=== PATIENT | female | born 1985 | race Caucasian/White ===

== ENCOUNTER → 2016-12-08 | Outpatient (CLI) | payer OTHER ==
[~2016-12-08] MED LIST: ONDA4TAB10 PO; OXYC1TAB7 PO
== END | disposition home or self-care (01) ==
LOC: CFH 15:27
PROVIDERS: ATTEND Obstetrics & Gynecology
DX: N83.02 Follicular cyst of left ovary (principal); N83.01 Follicular cyst of right ovary
CPT/HCPCS: 76830

== ENCOUNTER 2017-04-12 17:00 | Emergency (ER) | payer OTHER ==
[~2017-04-12] VITALS: Ht 172.7 cm; Wt 91.0 kg
[2017-04-12] MEDS ORDERED: SODIUM CHLORIDE FLUSH 10ML SYR IVF ONE (17:30)
[2017-04-12] MEDS ORDERED: MORPHINE SULFATE 4 MG/ML, 1ML IVPush PRN ×2 (17:30→21:00)
[2017-04-12] MEDS ORDERED: SODIUM CHLORIDE 0.9% 1,000ML IVBOLUS ONE (17:30)
[2017-04-12] MEDS ORDERED: ONDANSETRON 2MG/ML, 2ML IVPush ONE ×2 (17:30→21:00)
[2017-04-12] MEDS ORDERED: ONDANSETRON 2MG/ML, 2ML ONE ×2 (17:49→20:36)
[2017-04-12] MEDS ORDERED: KETOROLAC 30 MG/1 ML ONE (17:49)
[2017-04-12 17:59] LABS: BLOOD UREA NITROGEN 11 mg/dL (7-18)
[2017-04-12] MEDS ORDERED: KETOROLAC 30 MG/1 ML IVPush ONE (18:00)
[2017-04-12] MEDS ORDERED: OMNIPAQUE 350 MG/ML, 100ML BOTTLE ONE (20:25)
[2017-04-12] MEDS ORDERED: MORPHINE SULFATE 4 MG/ML, 1ML ONE (20:36)
[2017-04-12 22:17] VITALS: BP 111/68
== END 2017-04-12 22:19 | disposition home or self-care (01) ==
LOC: ED 20:43
DX: N83.01 Follicular cyst of right ovary (principal); N83.02 Follicular cyst of left ovary; N98.1 Hyperstimulation of ovaries; Z87.891 Personal history of nicotine dependence
CPT/HCPCS: 36415; 74020; 74177; 80048; 81003; 82040; 84703; 85025; 96361; 96374; 96375; 96376; 99285; J1885; J2405; J7030; Q9967

== ENCOUNTER 2018-12-16 09:57 | Outpatient (CLI) | payer OTHER ==
[2018-12-16] MEDS ORDERED: PREN1TAB10 PO (10:55)
[2018-12-16] MEDS ORDERED: METF10007 PO (10:55)
== END 2018-12-16 11:16 | disposition home or self-care (01) ==
LOC: LDOP 09:57
PROVIDERS: ATTEND Obstetrics & Gynecology
DX: O26.892 Other specified pregnancy related conditions, second trimester (principal); R10.9 Unspecified abdominal pain; Z3A.21 21 weeks gestation of pregnancy
CPT/HCPCS: 59025; 99201; G0463

== ENCOUNTER 2019-02-10 11:35 | Outpatient (CLI) | payer OTHER ==
[~2019-02-10] VITALS: Ht 172.7 cm; Wt 112.7 kg
[~2019-02-10 11:35] MED LIST changes: +METF10007 PO; +PREN1TAB10 PO
[2019-02-10 11:39] VITALS: BP 145/89
[2019-02-10] MEDS ORDERED: ACETAMINOPHEN 325 MG TABLET ONE (12:18)
[2019-02-10] MEDS ORDERED: ACETAMINOPHEN 325 MG TABLET PO ONE (12:30)
[2019-02-10 13:24] LABS: MICROSCOPIC NOT IND
[2019-02-10 13:31] LABS: BASOPHILS # (AUTO) 0.07 x10^3/uL (0-0.1); BASOPHILS % (AUTO) 1 % (0-1); EOSINOPHILS # (AUTO) 0.25 x10^3/uL (0-0.4); EOSINOPHILS % (AUTO) 2 % (1-7); LYMPHOCYTES # (AUTO) 2.42 x10^3/uL (1-3.4); LYMPHOCYTES % (AUTO) 20 % (22-44); MD NO; MEAN CORPUSCULAR HEMOGLOBIN 29.2 pg (27.0-34.8); MEAN CORPUSCULAR HGB CONC 32.7 g/dL (32.4-35.8); MEAN CORPUSCULAR VOLUME 89.3 fL (80-100); MEAN PLATELET VOLUME 8.9 fL (7.4-10.4); MONOCYTES % (AUTO) 4 % (2-9); NEUTROPHILS # (AUTO) 8.66 x10^3/uL (1.8-6.8); NEUTROPHILS % (AUTO) 73 % (42-75); PLATELET COUNT 217 x10^3/uL (130-400); RED BLOOD COUNT 3.88 x10^6/uL (3.82-5.3); RED CELL DISTRIBUTION WIDTH 13.3 % (9.6-15.2)
[2019-02-10 13:37] LABS: CREATININE,URINE RANDOM 28.1 mg/dL
[2019-02-10 13:42] LABS: ALANINE AMINOTRANSFERASE 19 U/L (12-78); ALBUMIN 2.8 g/dL (3.4-5.0); ANION GAP 9 mmol/L (5-15); CALCIUM 9.4 mg/dL (8.5-10.1); CHLORIDE 107 mmol/L (98-107); CREATININE 0.79 mg/dL (0.55-1.02)
[2019-02-10 13:44] LABS: ALKALINE PHOSPHATASE 63 U/L (45-117); BILIRUBIN,TOTAL 0.3 mg/dL (0.2-1.0); TOTAL PROTEIN 6.5 g/dL (6.4-8.2)
== END 2019-02-10 15:10 | disposition home or self-care (01) ==
LOC: LDOP 11:35
PROVIDERS: ATTEND Obstetrics & Gynecology
DX: O46.93 Antepartum hemorrhage, unspecified, third trimester (principal); Z3A.29 29 weeks gestation of pregnancy
CPT/HCPCS: 59025; 80053; 81003; 81050; 82570; 84156; 84550; 85025; 99211; G0463

== ENCOUNTER 2019-03-20 11:12 | Outpatient (CLI) | payer OTHER ==
[~2019-03-20] VITALS: Ht 172.7 cm; Wt 112.0 kg
[2019-03-20 11:33] VITALS: BP 165/98
[2019-03-20 11:34] LABS: MICROSCOPIC NOT IND
[2019-03-20 11:42] LABS: BASOPHILS # (AUTO) 0.04 x10^3/uL (0-0.1); BASOPHILS % (AUTO) 0 % (0-1); EOSINOPHILS # (AUTO) 0.18 x10^3/uL (0-0.4); EOSINOPHILS % (AUTO) 2 % (1-7); LYMPHOCYTES # (AUTO) 2.16 x10^3/uL (1-3.4); LYMPHOCYTES % (AUTO) 22 % (22-44); MD NO; MEAN CORPUSCULAR HEMOGLOBIN 30.1 pg (27.0-34.8); MEAN CORPUSCULAR HGB CONC 33.4 g/dL (32.4-35.8); MEAN CORPUSCULAR VOLUME 89.9 fL (80-100); MEAN PLATELET VOLUME 9.3 fL (7.4-10.4); MONOCYTES # (AUTO) 0.47 x10^3/uL (0.2-0.8); MONOCYTES % (AUTO) 5 % (2-9); NEUTROPHILS # (AUTO) 6.92 x10^3/uL (1.8-6.8); NEUTROPHILS % (AUTO) 71 % (42-75); PLATELET COUNT 220 x10^3/uL (130-400); RED BLOOD COUNT 3.89 x10^6/uL (3.82-5.3); RED CELL DISTRIBUTION WIDTH 13.6 % (9.6-15.2)
[2019-03-20] MEDS ORDERED: LABETALOL 100 MG TABLET ONE (11:42)
[2019-03-20 11:46] LABS: CREATININE,URINE RANDOM 52.4 mg/dL
[2019-03-20 11:56] LABS: ALANINE AMINOTRANSFERASE 18 U/L (12-78); ALBUMIN 2.8 g/dL (3.4-5.0); ANION GAP 9 mmol/L (5-15); BILIRUBIN, DIRECT 0.1 mg/dL (0.1-0.2); CALCIUM 9.6 mg/dL (8.5-10.1); CHLORIDE 108 mmol/L (98-107)
[2019-03-20 11:58] LABS: ALKALINE PHOSPHATASE 80 U/L (45-117); BILIRUBIN,TOTAL 0.4 mg/dL (0.2-1.0); TOTAL PROTEIN 6.6 g/dL (6.4-8.2)
[2019-03-20] MEDS ORDERED: LABETALOL 100 MG TABLET PO SCH (12:00)
== END 2019-03-20 13:04 | disposition home or self-care (01) ==
LOC: LDOP 11:12
PROVIDERS: ATTEND Obstetrics & Gynecology
DX: Z34.83 Encounter for supervision of other normal pregnancy, third trimester (principal); Z3A.34 34 weeks gestation of pregnancy
CPT/HCPCS: 36415; 59025; 80053; 81003; 82248; 82570; 84156; 84550; 85025; 99211; G0463

== ENCOUNTER 2019-03-24 13:43 | Observation (INO) | payer OTHER ==
[~2019-03-24] VITALS: Ht 172.7 cm; Wt 113.6 kg
[2019-03-24 14:11] LABS: MICROSCOPIC NOT IND
[2019-03-24 14:22] LABS: CREATININE,URINE RANDOM 58.6 mg/dL
[2019-03-24 14:30] LABS: BASOPHILS # (AUTO) 0.04 x10^3/uL (0-0.1); BASOPHILS % (AUTO) 0 % (0-1); EOSINOPHILS # (AUTO) 0.19 x10^3/uL (0-0.4); EOSINOPHILS % (AUTO) 2 % (1-7); LYMPHOCYTES # (AUTO) 2.54 x10^3/uL (1-3.4); LYMPHOCYTES % (AUTO) 25 % (22-44); MD NO; MEAN CORPUSCULAR HEMOGLOBIN 29.9 pg (27.0-34.8); MEAN CORPUSCULAR HGB CONC 33.2 g/dL (32.4-35.8); MEAN CORPUSCULAR VOLUME 90.2 fL (80-100); MEAN PLATELET VOLUME 9.4 fL (7.4-10.4); MONOCYTES # (AUTO) 0.54 x10^3/uL (0.2-0.8); MONOCYTES % (AUTO) 5 % (2-9); NEUTROPHILS # (AUTO) 6.87 x10^3/uL (1.8-6.8); NEUTROPHILS % (AUTO) 68 % (42-75); PLATELET COUNT 208 x10^3/uL (130-400); RED BLOOD COUNT 3.62 x10^6/uL (3.82-5.3); RED CELL DISTRIBUTION WIDTH 13.6 % (9.6-15.2)
[2019-03-24 14:38] LABS: ALANINE AMINOTRANSFERASE 21 U/L (12-78); ALBUMIN 2.6 g/dL (3.4-5.0); ANION GAP 9 mmol/L (5-15); CALCIUM 8.5 mg/dL (8.5-10.1); CHLORIDE 110 mmol/L (98-107); CREATININE 0.76 mg/dL (0.55-1.02)
[2019-03-24 14:40] LABS: ALKALINE PHOSPHATASE 72 U/L (45-117); BILIRUBIN,TOTAL 0.3 mg/dL (0.2-1.0); TOTAL PROTEIN 6.2 g/dL (6.4-8.2)
[2019-03-24] MEDS ORDERED: LABETALOL 200 MG TABLET ONE (15:05)
[2019-03-24] MEDS ORDERED: LABETALOL 200 MG TABLET PO SCH (15:30)
[2019-03-24] MEDS ORDERED: niFEDipine ER 30 MG TABLET.ER ONE (16:53)
[2019-03-24] MEDS ORDERED: niFEDipine ER 30 MG TABLET.ER PO ONE (17:00)
== END 2019-03-24 17:15 | disposition home or self-care (01) ==
LOC: LDOP 13:43 → LDIP 16:12
PROVIDERS: ADMIT Obstetrics & Gynecology; ATTEND Obstetrics & Gynecology
DX: O13.3 Gestational [pregnancy-induced] hypertension without significant proteinuria, third trimester (principal); Z3A.35 35 weeks gestation of pregnancy; Z87.891 Personal history of nicotine dependence; Z88.0 Allergy status to penicillin; Z88.8 Allergy status to other drugs, medicaments and biological substances; Z91.018 Allergy to other foods
CPT/HCPCS: 36415; 59025; 80053; 81003; 81050; 82570; 84156; 84550; 85025; 99211; G0378; G0463

== ENCOUNTER 2019-03-24 23:27 | Observation (INO) | payer OTHER ==
[~2019-03-24] VITALS: Ht 172.7 cm; Wt 113.6 kg
[2019-03-25] MEDS ORDERED: ACETAMINOPHEN 325 MG TABLET ONE ×3 (00:18→12:08)
[2019-03-25] MEDS: ACETAMINOPHEN 325 MG TABLET PO PRN ×3 (00:22→12:09)
[2019-03-25] MEDS: LACTATED RINGERS 1,000 ML IV SCH ×2 (00:33→11:00)
[2019-03-25 01:08] VITALS: BP 145/83
[2019-03-25 04:21] LABS: BASOPHILS # (AUTO) 0.05 x10^3/uL (0-0.1); BASOPHILS % (AUTO) 0 % (0-1); EOSINOPHILS # (AUTO) 0.21 x10^3/uL (0-0.4); EOSINOPHILS % (AUTO) 2 % (1-7); LYMPHOCYTES % (AUTO) 23 % (22-44); MD NO; MEAN CORPUSCULAR HEMOGLOBIN 29.2 pg (27.0-34.8); MEAN CORPUSCULAR HGB CONC 32.9 g/dL (32.4-35.8); MEAN CORPUSCULAR VOLUME 88.7 fL (80-100); MEAN PLATELET VOLUME 9.2 fL (7.4-10.4); MONOCYTES % (AUTO) 5 % (2-9); NEUTROPHILS # (AUTO) 7.68 x10^3/uL (1.8-6.8); NEUTROPHILS % (AUTO) 70 % (42-75); PLATELET COUNT 190 x10^3/uL (130-400); RED BLOOD COUNT 3.46 x10^6/uL (3.82-5.3); RED CELL DISTRIBUTION WIDTH 13.7 % (9.6-15.2)
[2019-03-25 04:29] LABS: ALBUMIN 2.4 g/dL (3.4-5.0); ANION GAP 8 mmol/L (5-15); CALCIUM 8.2 mg/dL (8.5-10.1); CHLORIDE 113 mmol/L (98-107)
[2019-03-25 04:33] LABS: ALANINE AMINOTRANSFERASE 19 U/L (12-78); ALKALINE PHOSPHATASE 73 U/L (45-117); BILIRUBIN, DIRECT < 0.1 mg/dL (0.1-0.2); BILIRUBIN,TOTAL 0.3 mg/dL (0.2-1.0); CREATININE 0.75 mg/dL (0.55-1.02); TOTAL PROTEIN 5.8 g/dL (6.4-8.2)
[2019-03-25 07:27] LABS: MICROSCOPIC NOT IND
[2019-03-25 07:35] VITALS: BP 167/94
[2019-03-25 08:03] LABS: CREATININE,URINE RANDOM 39.2 mg/dL
[2019-03-25] MEDS ORDERED: niFEDipine ER 60 MG TABLET.ER PO SCH (09:00)
[2019-03-25] MEDS ORDERED: niFEDipine ER 60 MG TABLET.ER PO ONE (11:07)
[2019-03-25] MEDS ORDERED: BETAMETHASONE 6 MG/ML, 5ML IM SCH (12:30)
[2019-03-25] MEDS ORDERED: BETAMETHASONE 6 MG/ML, 5ML IM ONE (12:31)
== END 2019-03-25 12:55 | disposition home or self-care (01) ==
LOC: LDIP 23:27
PROVIDERS: ADMIT Obstetrics & Gynecology; ATTEND Obstetrics & Gynecology
DX: O26.893 Other specified pregnancy related conditions, third trimester (principal); Z3A.35 35 weeks gestation of pregnancy; Z88.0 Allergy status to penicillin; Z88.8 Allergy status to other drugs, medicaments and biological substances; Z91.018 Allergy to other foods
CPT/HCPCS: 36415; 59025; 80053; 81003; 81050; 82248; 82570; 84156; 84550; 85025; 87081; 96361; 96372; 99201; G0378; G0463; J7120

== ENCOUNTER 2019-03-26 08:13 | Outpatient (CLI) | payer OTHER ==
[~2019-03-26] VITALS: Ht 172.7 cm; Wt 113.0 kg
[2019-03-26] MEDS ORDERED: BETAMETHASONE 6 MG/ML, 5ML IM ONE ×2 (08:21→08:30)
[2019-03-26] MEDS ORDERED: PLEASE ENTER HEIGHT AND WEIGHT MC SCH (08:30)
[2019-03-27] MEDS ORDERED: LABE200T6 PO (23:12)
== END 2019-03-26 09:20 | disposition home or self-care (01) ==
LOC: LDOP 08:13
PROVIDERS: ATTEND Obstetrics & Gynecology
DX: Z34.93 Encounter for supervision of normal pregnancy, unspecified, third trimester (principal); Z3A.35 35 weeks gestation of pregnancy
CPT/HCPCS: 59025; 99211; J0702; G0463

== ENCOUNTER 2019-03-27 21:54 | Outpatient (CLI) | payer OTHER ==
[~2019-03-27] VITALS: Ht 172.7 cm; Wt 120.0 kg
[2019-03-27 22:18] VITALS: BP 151/76
[2019-03-27 22:21] LABS: MICROSCOPIC NOT IND
[2019-03-27 22:55] LABS: BASOPHILS # (AUTO) 0.04 x10^3/uL (0-0.1); BASOPHILS % (AUTO) 0 % (0-1); EOSINOPHILS # (AUTO) 0.12 x10^3/uL (0-0.4); EOSINOPHILS % (AUTO) 1 % (1-7); LYMPHOCYTES # (AUTO) 2.62 x10^3/uL (1-3.4); LYMPHOCYTES % (AUTO) 23 % (22-44); MD NO; MEAN CORPUSCULAR HEMOGLOBIN 29.4 pg (27.0-34.8); MEAN CORPUSCULAR HGB CONC 33.1 g/dL (32.4-35.8); MEAN CORPUSCULAR VOLUME 88.7 fL (80-100); MEAN PLATELET VOLUME 9.1 fL (7.4-10.4); MONOCYTES # (AUTO) 0.89 x10^3/uL (0.2-0.8); MONOCYTES % (AUTO) 8 % (2-9); NEUTROPHILS # (AUTO) 7.89 x10^3/uL (1.8-6.8); NEUTROPHILS % (AUTO) 68 % (42-75); PLATELET COUNT 213 x10^3/uL (130-400); RED BLOOD COUNT 3.35 x10^6/uL (3.82-5.3); RED CELL DISTRIBUTION WIDTH 13.6 % (9.6-15.2)
[2019-03-27 23:07] LABS: ALANINE AMINOTRANSFERASE 24 U/L (12-78); ALBUMIN 2.4 g/dL (3.4-5.0); ANION GAP 10 mmol/L (5-15); CALCIUM 8.6 mg/dL (8.5-10.1); CHLORIDE 111 mmol/L (98-107)
[2019-03-27 23:10] LABS: ALKALINE PHOSPHATASE 68 U/L (45-117); BILIRUBIN,TOTAL 0.2 mg/dL (0.2-1.0); CREATININE 0.79 mg/dL (0.55-1.02); TOTAL PROTEIN 5.9 g/dL (6.4-8.2)
[2019-03-27] MEDS ORDERED: LABE200T6 PO (23:12)
[2019-03-27 23:26] LABS: CREATININE,URINE RANDOM 39.7 mg/dL
[2019-03-27 23:29] LABS: BILIRUBIN, DIRECT < 0.1 mg/dL (0.1-0.2)
== END 2019-03-27 23:52 | disposition home or self-care (01) ==
LOC: LDOP 21:54
PROVIDERS: ATTEND Obstetrics & Gynecology
DX: O26.893 Other specified pregnancy related conditions, third trimester (principal); R06.02 Shortness of breath; Z3A.36 36 weeks gestation of pregnancy
CPT/HCPCS: 36415; 59025; 71045; 80053; 81003; 82248; 82570; 84156; 84550; 85025; 87086; 93005; 99211; G0463

== ENCOUNTER 2019-04-04 08:15 | Inpatient (IN) | payer OTHER ==
[~2019-04-04] VITALS: Ht 172.7 cm; Wt 117.4 kg
[2019-04-06 15:33] VITALS: BP 146/96
== END 2019-04-06 17:50 | disposition home or self-care (01) | DRG 807 ==
LOC: LDIP 08:15 → 2NW 04-05 16:41
PROVIDERS: ADMIT Obstetrics & Gynecology; ATTEND Obstetrics & Gynecology
PROC: 10E0XZZ Delivery of Products of Conception, External Approach (ICD-10-PCS; principal; 2019-04-04)
PROC: 10907ZC Drainage of Amniotic Fluid, Therapeutic from Products of Conception, Via Natural or Artificial Opening (ICD-10-PCS; 2019-04-04)
PROC: 3E033VJ Introduction of Other Hormone into Peripheral Vein, Percutaneous Approach (ICD-10-PCS; 2019-04-04)
DX: O13.4 Gestational [pregnancy-induced] hypertension without significant proteinuria, complicating childbirth (principal); Z37.0 Single live birth; Z3A.37 37 weeks gestation of pregnancy; Z88.0 Allergy status to penicillin; Z88.8 Allergy status to other drugs, medicaments and biological substances; Z91.010 Allergy to peanuts
CPT/HCPCS: 36415; J7121; 80053; 81001; 81003; 82248; 82803; 84550; 85025; 86850; 86900; 87077; 87086; 87186; G0378; J3010; J0360; J2590; J3105; J7120